=== PATIENT | female | born 1935 | race Caucasian/White ===

== ENCOUNTER 2017-10-17 22:11 | Inpatient (IN) ==
[2017-10-17] MEDS ORDERED: HYDROmorphone 2 MG/1 ML VIAL IV STA (22:38)
[2017-10-17] MEDS ORDERED: ONDANSETRON 4 MG/2 ML VIAL IV STA (22:38)
[2017-10-17] MEDS ORDERED: HYDROmorphone 2 MG/1 ML VIAL ONE (22:50)
[2017-10-17] MEDS ORDERED: ONDANSETRON 4 MG/2 ML VIAL ONE (22:50)
[2017-10-17 23:24] LABS: Basophils % 0.3 % (0.0-0.8); Eosinophils # 0.2 10*3/uL (0.0-0.87); Eosinophils % 3.7 % (0.00-10.9); Hematocrit 32.6 VOL% (35.7-47.0); Hemoglobin 11.1 GM/DL (12.0-16.0); Immature Granulocytes % 0.3 %; Immature Granulocytes Absolute 0.02 #; Lymphocytes # 0.9 10*3/uL (1.4-4.0); Mean Corpuscular Hemoglobin 31 PG (27-34); Mean Corpuscular Volume 89.8 FL (87-102); Mean Platelet Volume 9.2 FL (9.6-12.0); Monocytes # 0.5 10*3/uL (0.11-0.8); Monocytes % 9.2 % (1.7-12.7); Neutrophils % 70.5 % (38.7-73.9); Platelet Count 190 T/CUMM (130-400); Red Blood Count 3.63 MC/CUMM (3.8-5.5); Red Cell Distribution Width 17.4 % (9.3-17.3); White Blood Count 5.7 T/CUMM (4-12)
[2017-10-17 23:44] LABS: Albumin 3.8 G/DL (3.4-5.0); Bilirubin,Total 0.9 MG/DL (0.2-1.0); Calcium 9.1 MG/DL (8.5-10.1); Osmolality,Calculated 276.8 MOS/KG (273-304); Potassium 3.6 MMOL/L (3.5-5.1)
[2017-10-18 00:08] LABS: INR 1.1; PT Patient Result 11.8 SECS
[2017-10-18 01:01] LABS: Apearance,Urine CLEAR (Clear); Bilirubin,Urine Negative (Negative); Blood, Urine Negative (Negative); Glucose,Urine (UA) Negative (Negative); Ketones,Urine Negative (Negative); Nitrite,Urine Negative (Negative); Protein,Urine Negative; RBC,Urine 1 /HPF (0-4); Squamous Epithelial Cell,Urine Occasional /HPF (0-10); Urine Color Yellow (Yellow); Urine Specific Gravity 1.038 (1.001-1.035); Urine Urobilinogen < 2.0 EU/DL (0.2-1.0); WBC,Urine <1 /HPF (0-6)
[2017-10-18 05:18] LABS: Basophils % 0.2 % (0.0-0.8); Eosinophils # 0.2 10*3/uL (0.0-0.87); Eosinophils % 2.9 % (0.00-10.9); Hemoglobin 9.8 GM/DL (12.0-16.0); Immature Granulocytes % 0.3 %; Immature Granulocytes Absolute 0.02 #; Lymphocytes # 0.7 10*3/uL (1.4-4.0); Lymphocytes % 11.1 % (21.3-54.2); Mean Corpuscular HGB Conc 32.7 GM/DL (32-36); Mean Corpuscular Hemoglobin 30 PG (27-34); Mean Corpuscular Volume 92.3 FL (87-102); Mean Platelet Volume 9.4 FL (9.6-12.0); Monocytes # 0.5 10*3/uL (0.11-0.8); Monocytes % 8.6 % (1.7-12.7); Neutrophils # 4.6 10*3/uL (1.4-7.4); Neutrophils % 76.9 % (38.7-73.9); Platelet Count 195 T/CUMM (130-400); Red Blood Count 3.25 MC/CUMM (3.8-5.5); Red Cell Distribution Width 17.6 % (9.3-17.3); White Blood Count 5.9 T/CUMM (4-12)
[2017-10-18] MEDS: SODIUM CHLORIDE 0.9% 1,000 ML IV SCH ×4 (05:40→23:59)
[2017-10-18 06:01] LABS: Osmolality,Calculated 275.8 MOS/KG (273-304); Potassium 3.6 MMOL/L (3.5-5.1)
[2017-10-18] MEDS: PANTOPRAZOLE 40 MG VIAL IV SCH (08:52)
[2017-10-18] MEDS: HYDROmorphone 2 MG/1 ML VIAL IV PRN ×2 (14:33→20:32)
[2017-10-18] MEDS: ONDANSETRON 4 MG/2 ML VIAL IV PRN (20:32)
[2017-10-18] MEDS: POTASSIUM CHLORIDE 10 MEQ TABLET PO SCH (22:13)
[2017-10-19] MEDS: ALBUTEROL/IPRATROPIUM 3 ML NEB RESP TX SCH ×4 (00:52→21:35)
[2017-10-19 05:50] LABS: Basophils % 0.2 % (0.0-0.8); Eosinophils # 0.3 10*3/uL (0.0-0.87); Eosinophils % 5.6 % (0.00-10.9); Hemoglobin 10.7 GM/DL (12.0-16.0); Immature Granulocytes % 0.4 %; Immature Granulocytes Absolute 0.02 #; Lymphocytes # 1.1 10*3/uL (1.4-4.0); Lymphocytes % 20.1 % (21.3-54.2); Mean Corpuscular HGB Conc 31.5 GM/DL (32-36); Mean Corpuscular Hemoglobin 30 PG (27-34); Mean Corpuscular Volume 95.5 FL (87-102); Mean Platelet Volume 9.5 FL (9.6-12.0); Monocytes # 0.6 10*3/uL (0.11-0.8); Monocytes % 10.4 % (1.7-12.7); Neutrophils # 3.6 10*3/uL (1.4-7.4); Neutrophils % 63.3 % (38.7-73.9); Platelet Count 192 T/CUMM (130-400); Red Blood Count 3.56 MC/CUMM (3.8-5.5); White Blood Count 5.7 T/CUMM (4-12)
[2017-10-19] MEDS: LEVOTHYROXINE 100 MCG TABLET PO SCH (06:18)
[2017-10-19 06:26] LABS: Calcium 8.3 MG/DL (8.5-10.1); Magnesium 2.3 MG/DL (1.8-2.4); Potassium 3.5 MMOL/L (3.5-5.1)
[2017-10-19] MEDS: SODIUM CHLORIDE 0.9% 1,000 ML IV SCH ×3 (09:38→20:26)
[2017-10-19] MEDS: ONDANSETRON 4 MG/2 ML VIAL IV PRN (11:41)
[2017-10-19] MEDS: FUROSEMIDE 40 MG/4 ML VIAL IV SCH (11:47)
[2017-10-19] MEDS: ESCITALOPRAM 10 MG TABLET PO SCH (11:50)
[2017-10-19] MEDS: LEVOFLOXACIN INJ 500 MG in PREMIX 1 EACH IV SCH (12:00)
[2017-10-19] MEDS: FUROSEMIDE 80 MG TABLET PO SCH (17:17)
[2017-10-19] MEDS: ASPIRIN EC 81 MG TABLET PO SCH (20:24)
[2017-10-19] MEDS: OMEGA 3 ACID ETHYL ESTERS 1 GM CAPSULE PO SCH (20:24)
[2017-10-19] MEDS: POTASSIUM CHLORIDE 10 MEQ TABLET PO SCH (20:24)
[2017-10-19] MEDS: ATORVASTATIN 40 MG TABLET PO SCH (20:24)
[2017-10-19] MEDS: PANTOPRAZOLE 40 MG TABLET PO SCH (20:25)
[2017-10-19] MEDS: FERROUS SULFATE 325 MG TABLET PO SCH (20:25)
[2017-10-19] MEDS: PANTOPRAZOLE 40 MG VIAL IV SCH (21:52)
[2017-10-20] MEDS: ALBUTEROL/IPRATROPIUM 3 ML NEB RESP TX SCH ×4 (01:22→20:18)
[2017-10-20] MEDS: SODIUM CHLORIDE 0.9% 1,000 ML IV SCH ×3 (03:29→20:46)
[2017-10-20] MEDS: LEVOTHYROXINE 100 MCG TABLET PO SCH (06:30)
[2017-10-20] MEDS: FUROSEMIDE 40 MG/4 ML VIAL IV SCH (08:29)
[2017-10-20] MEDS: CYANOCOBALAMIN 500 MCG TABLET PO SCH (08:57)
[2017-10-20] MEDS: ESCITALOPRAM 10 MG TABLET PO SCH (08:57)
[2017-10-20] MEDS: FERROUS SULFATE 325 MG TABLET PO SCH ×2 (08:57→20:50)
[2017-10-20] MEDS: LOSARTAN 25 MG TABLET PO SCH (08:57)
[2017-10-20] MEDS: ESTRADIOL 1 MG TABLET PO SCH (08:57)
[2017-10-20] MEDS: OMEGA 3 ACID ETHYL ESTERS 1 GM CAPSULE PO SCH ×2 (08:57→20:49)
[2017-10-20] MEDS: PANTOPRAZOLE 40 MG TABLET PO SCH ×2 (08:57→20:50)
[2017-10-20] MEDS: FUROSEMIDE 80 MG TABLET PO SCH ×2 (08:58→16:19)
[2017-10-20] MEDS: LEVOFLOXACIN INJ 500 MG in PREMIX 1 EACH IV SCH (09:00)
[2017-10-20] MEDS: POTASSIUM CHLORIDE 10 MEQ TABLET PO SCH (20:49)
[2017-10-20] MEDS: ATORVASTATIN 40 MG TABLET PO SCH (20:50)
[2017-10-20] MEDS: ASPIRIN EC 81 MG TABLET PO SCH (20:50)
[2017-10-21] MEDS: ALBUTEROL/IPRATROPIUM 3 ML NEB RESP TX SCH ×3 (00:56→11:00)
[2017-10-21] MEDS: SODIUM CHLORIDE 0.9% 1,000 ML IV SCH ×2 (03:22→10:52)
[2017-10-21] MEDS: LEVOTHYROXINE 100 MCG TABLET PO SCH (06:17)
[2017-10-21] MEDS: ESTRADIOL 1 MG TABLET PO SCH (08:26)
[2017-10-21] MEDS: FERROUS SULFATE 325 MG TABLET PO SCH (08:26)
[2017-10-21] MEDS: FUROSEMIDE 80 MG TABLET PO SCH (08:26)
[2017-10-21] MEDS: LOSARTAN 25 MG TABLET PO SCH (08:26)
[2017-10-21] MEDS: CYANOCOBALAMIN 500 MCG TABLET PO SCH (08:27)
[2017-10-21] MEDS: OMEGA 3 ACID ETHYL ESTERS 1 GM CAPSULE PO SCH (08:27)
[2017-10-21] MEDS: ESCITALOPRAM 10 MG TABLET PO SCH (08:27)
[2017-10-21] MEDS: PANTOPRAZOLE 40 MG TABLET PO SCH (08:27)
[2017-10-21] MEDS: FUROSEMIDE 40 MG/4 ML VIAL IV SCH (08:27)
[2017-10-21] MEDS: LEVOFLOXACIN INJ 500 MG in PREMIX 1 EACH IV SCH ×2 (08:27→09:32)
[2017-10-21 10:56] VITALS: BP 119/59
== END 2017-10-21 15:42 | disposition home or self-care (01) | DRG 390 ==
LOC: N.ED 22:11 → N.EDINP 10-18 01:11 → N.3E 10-18 02:03
PROVIDERS: ADMIT Internal Medicine; ATTEND Internal Medicine

== ENCOUNTER 2018-02-21 15:52 | Inpatient (IN) ==
[2018-02-21] MEDS ORDERED: NITROGLYCERIN 2% OINT 1 INCH/GM PACK TOP STA (16:31)
[2018-02-21] MEDS ORDERED: FUROSEMIDE 100 MG/10 ML VIAL IV STA (16:31)
[2018-02-21 16:37] LABS: Basophils % 0.3 % (0.0-0.8); Eosinophils # 0.2 10*3/uL (0.0-0.87); Eosinophils % 2.7 % (0.00-10.9); Hematocrit 30.1 VOL% (35.7-47.0); Hemoglobin 9.4 GM/DL (12.0-16.0); Immature Granulocytes % 0.5 %; Immature Granulocytes Absolute 0.03 #; Lymphocytes # 1.1 10*3/uL (1.4-4.0); Lymphocytes % 18.6 % (21.3-54.2); Mean Corpuscular HGB Conc 31.2 GM/DL (32-36); Mean Corpuscular Hemoglobin 28 PG (27-34); Mean Corpuscular Volume 88.8 FL (87-102); Mean Platelet Volume 9.6 FL (9.6-12.0); Monocytes # 0.6 10*3/uL (0.11-0.8); Monocytes % 9.6 % (1.7-12.7); Neutrophils # 4.1 10*3/uL (1.4-7.4); Neutrophils % 68.3 % (38.7-73.9); Platelet Count 272 T/CUMM (130-400); Red Blood Count 3.39 MC/CUMM (3.8-5.5); Red Cell Distribution Width 17.2 % (9.3-17.3)
[2018-02-21] MEDS ORDERED: NITROGLYCERIN 2% OINT 1 INCH/GM PACK TOP ONE (16:40)
[2018-02-21] MEDS ORDERED: FUROSEMIDE 100 MG/10 ML VIAL ONE (16:40)
[2018-02-21 16:45] LABS: INR 1.4
[2018-02-21 17:09] LABS: Albumin 3.2 G/DL (3.4-5.0); Bilirubin,Total 0.9 MG/DL (0.2-1.0); Calcium 8.4 MG/DL (8.5-10.1); Osmolality,Calculated 274.2 MOS/KG (273-304); Potassium 4.5 MMOL/L (3.5-5.1); Total Protein 7.4 G/DL (6.4-8.3)
[2018-02-21 17:53] LABS: Apearance,Urine CLOUDY (Clear); Bilirubin,Urine Negative (Negative); Blood, Urine Negative (Negative); Glucose,Urine (UA) Negative (Negative); Hyaline Casts,Urine 47 /LPF (0-3); Ketones,Urine Negative (Negative); Mucus,Urine Occasional /LPF (Occasional); Nitrite,Urine Negative (Negative); Protein,Urine 30 MG/DL; RBC,Urine 2 /HPF (0-4); Squamous Epithelial Cell,Urine Occasional /HPF (0-10); Urine Color Amber (Yellow); Urine Specific Gravity 1.014 (1.001-1.035); WBC,Urine 2 /HPF (0-6)
[2018-02-21] MEDS ORDERED: MAGNESIUM SULF RIDER 4 GM in PREMIX 1 EACH IV PRN (18:25)
[2018-02-21] MEDS ORDERED: MAGNESIUM SULF RIDER 2 GM in PREMIX 1 EACH IV PRN (18:25)
[2018-02-21] MEDS ORDERED: DOCUSATE SODIUM 100 MG CAPSULE PO PRN (18:25)
[2018-02-21] MEDS ORDERED: ONDANSETRON 4 MG/2 ML VIAL IV PRN (18:25)
[2018-02-21] MEDS: APIXABAN 5 MG TABLET PO SCH (21:44)
[2018-02-21] MEDS: ZALEPLON 5 MG CAPSULE PO PRN (21:48)
[2018-02-21] MEDS: ATORVASTATIN 40 MG TABLET PO SCH (21:48)
[2018-02-21] MEDS: POTASSIUM CHLORIDE 10 MEQ TABLET PO SCH (21:49)
[2018-02-21] MEDS: PANTOPRAZOLE 40 MG TABLET PO SCH (21:49)
[2018-02-21] MEDS: FUROSEMIDE 80 MG TABLET PO SCH (21:49)
[2018-02-22] MEDS ORDERED: PANTOPRAZOLE 40 MG TABLET PO SCH (09:00)
[2018-02-22] MEDS ORDERED: ALUMINUM/MAGNES/SIMETH MAX STR 30 ML UDCUP PO PRN (10:11)
[2018-02-22] MEDS: APIXABAN 5 MG TABLET PO SCH ×2 (10:26→22:33)
[2018-02-22] MEDS: SIMETHICONE CHEW 80 MG TABLET PO PRN (10:26)
[2018-02-22] MEDS: FUROSEMIDE 80 MG TABLET PO SCH ×2 (10:26→22:33)
[2018-02-22] MEDS: LEVOTHYROXINE 100 MCG TABLET PO SCH (10:26)
[2018-02-22] MEDS: PANTOPRAZOLE 40 MG TABLET PO SCH ×2 (10:27→22:33)
[2018-02-22] MEDS: ESCITALOPRAM 10 MG TABLET PO SCH (10:30)
[2018-02-22] MEDS: metOLazone 2.5 MG TABLET PO SCH (15:58)
[2018-02-22] MEDS: ATORVASTATIN 40 MG TABLET PO SCH (22:33)
[2018-02-22] MEDS: POTASSIUM CHLORIDE 10 MEQ TABLET PO SCH (22:33)
[2018-02-22] MEDS: ZALEPLON 5 MG CAPSULE PO PRN (22:34)
[2018-02-23 05:49] LABS: Calcium 8.5 MG/DL (8.5-10.1); Osmolality,Calculated 274.1 MOS/KG (273-304); Potassium 3.3 MMOL/L (3.5-5.1)
[2018-02-23] MEDS: LEVOTHYROXINE 100 MCG TABLET PO SCH (06:29)
[2018-02-23] MEDS ORDERED: POTASSIUM CHLORIDE 20 MEQ TABLET PO PRN (06:48)
[2018-02-23] MEDS: POTASSIUM CHLORIDE 20 MEQ TABLET PO SCH ×3 (10:22→21:16)
[2018-02-23] MEDS: metOLazone 2.5 MG TABLET PO SCH (10:22)
[2018-02-23] MEDS: FUROSEMIDE 80 MG TABLET PO SCH ×2 (10:23→18:18)
[2018-02-23] MEDS: PANTOPRAZOLE 40 MG TABLET PO SCH ×2 (10:23→21:16)
[2018-02-23] MEDS: APIXABAN 5 MG TABLET PO SCH ×2 (10:23→21:16)
[2018-02-23] MEDS: ESCITALOPRAM 10 MG TABLET PO SCH (10:23)
[2018-02-23] MEDS ORDERED: ACETAMINOPHEN 325 MG TABLET PO PRN (18:09)
[2018-02-23] MEDS: ZALEPLON 5 MG CAPSULE PO PRN (21:16)
[2018-02-23] MEDS: ATORVASTATIN 40 MG TABLET PO SCH (21:16)
[2018-02-24 04:52] LABS: Osmolality,Calculated 278.7 MOS/KG (273-304); Potassium 3.7 MMOL/L (3.5-5.1)
[2018-02-24] MEDS: LEVOTHYROXINE 100 MCG TABLET PO SCH (06:46)
[2018-02-24] MEDS: metOLazone 2.5 MG TABLET PO SCH (08:55)
[2018-02-24] MEDS: APIXABAN 5 MG TABLET PO SCH ×2 (08:55→20:57)
[2018-02-24] MEDS: PANTOPRAZOLE 40 MG TABLET PO SCH ×2 (08:55→20:57)
[2018-02-24] MEDS: ESCITALOPRAM 10 MG TABLET PO SCH (08:55)
[2018-02-24] MEDS: FUROSEMIDE 80 MG TABLET PO SCH ×2 (08:55→16:10)
[2018-02-24] MEDS: POTASSIUM CHLORIDE 20 MEQ TABLET PO SCH ×3 (08:56→20:57)
[2018-02-24] MEDS: ATORVASTATIN 40 MG TABLET PO SCH (20:57)
[2018-02-24] MEDS: SIMETHICONE CHEW 80 MG TABLET PO PRN (20:57)
[2018-02-24] MEDS: ZALEPLON 5 MG CAPSULE PO PRN (21:01)
[2018-02-25 05:22] LABS: Basophils % 0.4 % (0.0-0.8); Eosinophils # 0.2 10*3/uL (0.0-0.87); Eosinophils % 3.7 % (0.00-10.9); Hematocrit 25.6 VOL% (35.7-47.0); Hemoglobin 8.4 GM/DL (12.0-16.0); Immature Granulocytes % 0.4 %; Immature Granulocytes Absolute 0.02 #; Lymphocytes # 1.3 10*3/uL (1.4-4.0); Lymphocytes % 26.7 % (21.3-54.2); Mean Corpuscular HGB Conc 32.8 GM/DL (32-36); Mean Corpuscular Hemoglobin 28 PG (27-34); Mean Corpuscular Volume 84.5 FL (87-102); Mean Platelet Volume 9.4 FL (9.6-12.0); Monocytes # 0.8 10*3/uL (0.11-0.8); Monocytes % 15.8 % (1.7-12.7); Neutrophils # 2.6 10*3/uL (1.4-7.4); Platelet Count 251 T/CUMM (130-400); Red Blood Count 3.03 MC/CUMM (3.8-5.5); Red Cell Distribution Width 17.2 % (9.3-17.3); White Blood Count 4.9 T/CUMM (4-12)
[2018-02-25 05:50] LABS: Band Neutrophils 1 % (0-10); Eosinophils 2 % (0-10); Hypochromasia 1+; Lymphocytes 23 % (20-55); Segmented Neutrophils 65 % (50-85); Total Cells Counted 100
[2018-02-25 05:51] LABS: Microcytosis 1+; Ovalocytes Slight; Polychromasia Slight
[2018-02-25 05:52] LABS: Platelet Estimate Normal
[2018-02-25 05:56] LABS: Calcium 8.5 MG/DL (8.5-10.1); Osmolality,Calculated 273.1 MOS/KG (273-304); Potassium 3.8 MMOL/L (3.5-5.1)
[2018-02-25] MEDS: LEVOTHYROXINE 100 MCG TABLET PO SCH (06:39)
[2018-02-25 07:44] VITALS: BP 101/61
[2018-02-25] MEDS: PANTOPRAZOLE 40 MG TABLET PO SCH (08:44)
[2018-02-25] MEDS: metOLazone 2.5 MG TABLET PO SCH (08:47)
[2018-02-25] MEDS: ESCITALOPRAM 10 MG TABLET PO SCH (08:47)
[2018-02-25] MEDS: FUROSEMIDE 80 MG TABLET PO SCH (08:47)
[2018-02-25] MEDS: APIXABAN 5 MG TABLET PO SCH (08:47)
[2018-02-25] MEDS: POTASSIUM CHLORIDE 20 MEQ TABLET PO SCH (08:47)
== END 2018-02-25 11:20 | disposition home or self-care (01) | DRG 291 ==
LOC: N.ED 15:52 → N.EDINP 18:25 → N.TELES 19:47
PROVIDERS: ADMIT Internal Medicine Cardiovascular Disease; ATTEND Internal Medicine Cardiovascular Disease

== ENCOUNTER 2019-08-31 09:48 | Inpatient (IN) ==
[2019-08-31] MEDS ORDERED: FUROSEMIDE 40 MG/4 ML VIAL IV STA (10:39)
[2019-08-31] MEDS ORDERED: ONDANSETRON 4 MG/2 ML VIAL IV STA (10:39)
[2019-08-31 11:48] LABS: Basophils % 0.4 % (0.0-0.8); Eosinophils # 0.1 10*3/uL (0.0-0.87); Eosinophils % 2.1 % (0.00-10.9); Hematocrit 32.1 VOL% (35.7-47.0); Hemoglobin 10.5 GM/DL (12.0-16.0); Immature Granulocytes % 0.4 %; Immature Granulocytes Absolute 0.02 #; Lymphocytes # 0.7 10*3/uL (1.4-4.0); Lymphocytes % 14.4 % (21.3-54.2); Mean Corpuscular HGB Conc 32.7 GM/DL (32-36); Mean Corpuscular Volume 96.1 FL (87-102); Mean Platelet Volume 8.3 FL (9.6-12.0); Monocytes % 12.7 % (1.7-12.7); Platelet Count 243 T/CUMM (130-400); Red Blood Count 3.34 MC/CUMM (3.8-5.5); Red Cell Distribution Width 16.6 % (9.3-17.3); White Blood Count 4.8 T/CUMM (4-12)
[2019-08-31 11:59] LABS: Apearance,Urine Slightly Hazy (Clear); Bacteria,Urine Occasional /HPF (Few); Bilirubin,Urine Negative (Negative); Blood, Urine Negative (Negative); Glucose,Urine (UA) Negative (Negative); Hyaline Casts,Urine 21 /LPF (0-3); Ketones,Urine Negative (Negative); Mucus,Urine Occasional /LPF (Occasional); Nitrite,Urine Negative (Negative); Protein,Urine Negative; RBC,Urine 1 /HPF (0-4); Urine Color Yellow (Yellow); Urine Urobilinogen < 2.0 EU/DL (0.2-1.0); WBC,Urine 45 /HPF (0-6)
[2019-08-31 12:06] LABS: Alanine Aminotransferase 9 U/L (13-56); Alkaline Phosphatase 83 U/L (45-117); Amylase 63 U/L (25-115); Aspartate Amino Transferase 30 U/L (0-37); Blood Urea Nitrogen 47 MG/DL (7-18); Calcium 9.4 MG/DL (8.5-10.1); Glucose 101 MG/DL (74-106); Osmolality,Calculated 268.1 MOS/KG (273-304); Total Protein 7.4 G/DL (6.4-8.3)
[2019-08-31 12:07] LABS: Estimated Glom Filtration Rate 0 ML/MIN
[2019-08-31] MEDS ORDERED: cefTRIAXone 1,000 MG in SODIUM CHLORIDE 0.9% 100 ML IV STA (12:17)
[2019-08-31] MEDS ORDERED: SODIUM CHLORIDE 0.9% 1,000 ML IV STA (12:17)
[2019-08-31] MEDS ORDERED: MORPHINE 4 MG/1 ML VIAL IV PRN (15:09)
[2019-08-31] MEDS ORDERED: ACETAMINOPHEN 325 MG TABLET PO PRN (15:09)
[2019-08-31] MEDS ORDERED: SPIRONOLACTONE 25 MG TABLET PO PRN (15:09)
[2019-08-31] MEDS ORDERED: ONDANSETRON 4 MG/2 ML VIAL IV PRN (15:09)
[2019-08-31] MEDS ORDERED: SODIUM CHLORIDE 0.9% 1,000 ML IV SCH (15:09)
[2019-08-31] MEDS ORDERED: ACETAMINOPHEN 500 MG TABLET PO ONE (16:00)
[2019-08-31] MEDS: ALBUTEROL/IPRATROPIUM 3 ML NEB RESP TX SCH ×3 (16:45→22:56)
[2019-08-31] MEDS: MIDODRINE 5 MG TABLET PO SCH ×2 (17:20→20:44)
[2019-08-31] MEDS: FUROSEMIDE 40 MG/4 ML VIAL IV SCH (17:23)
[2019-08-31] MEDS ORDERED: diphenhydrAMINE CAP 25 MG CAPSULE PO PRN (17:41)
[2019-08-31] MEDS ORDERED: NITROGLYCERIN SL 0.4 MG TABLET SL PRN (17:41)
[2019-08-31] MEDS: SOTALOL 80 MG TABLET PO SCH (20:43)
[2019-08-31] MEDS: ATORVASTATIN 40 MG TABLET PO SCH (20:44)
[2019-08-31] MEDS: ASPIRIN CHEW 81 MG TABLET PO SCH (20:44)
[2019-08-31] MEDS: TEMAZEPAM 15 MG CAPSULE PO SCH (20:44)
[2019-08-31] MEDS: FERROUS SULFATE 325 MG TABLET PO SCH (20:44)
[2019-08-31] MEDS: PANTOPRAZOLE 40 MG TABLET PO SCH (20:44)
[2019-08-31] MEDS: POTASSIUM CHLORIDE 20 MEQ TABLET PO SCH (20:44)
[2019-08-31] MEDS ORDERED: FUROSEMIDE 80 MG TABLET PO SCH (21:00)
[2019-08-31] MEDS ORDERED: DOCUSATE SODIUM 100 MG CAPSULE PO SCH (21:00)
[2019-09-01] MEDS: ALBUTEROL/IPRATROPIUM 3 ML NEB RESP TX SCH ×6 (03:23→22:31)
[2019-09-01 05:22] LABS: Basophils % 0.4 % (0.0-0.8); Eosinophils # 0.1 10*3/uL (0.0-0.87); Eosinophils % 2.6 % (0.00-10.9); Hematocrit 30.4 VOL% (35.7-47.0); Immature Granulocytes % 0.9 %; Immature Granulocytes Absolute 0.04 #; Lymphocytes # 0.8 10*3/uL (1.4-4.0); Lymphocytes % 17.2 % (21.3-54.2); Mean Corpuscular HGB Conc 32.9 GM/DL (32-36); Mean Corpuscular Volume 95.6 FL (87-102); Mean Platelet Volume 9.1 FL (9.6-12.0); Monocytes % 8.4 % (1.7-12.7); Neutrophils % 70.5 % (38.7-73.9); Platelet Count 228 T/CUMM (130-400); Red Blood Count 3.18 MC/CUMM (3.8-5.5); Red Cell Distribution Width 16.6 % (9.3-17.3); White Blood Count 4.5 T/CUMM (4-12)
[2019-09-01 05:58] LABS: Alanine Aminotransferase < 9 U/L (13-56); Albumin 2.7 G/DL (3.4-5.0); Alkaline Phosphatase 74 U/L (45-117); Aspartate Amino Transferase 26 U/L (0-37); Blood Urea Nitrogen 46 MG/DL (7-18); Calcium 8.9 MG/DL (8.5-10.1); Estimated Glom Filtration Rate 20 ML/MIN; Glucose 120 MG/DL (74-106); Osmolality,Calculated 274.7 MOS/KG (273-304); Total Protein 7.2 G/DL (6.4-8.3)
[2019-09-01] MEDS: LEVOTHYROXINE 112 MCG TABLET PO SCH (06:11)
[2019-09-01] MEDS ORDERED: PANTOPRAZOLE 40 MG VIAL IV SCH (09:00)
[2019-09-01] MEDS ORDERED: ENOXAPARIN 60 MG/0.6 ML SYRINGE SUBCUT SCH (09:00)
[2019-09-01] MEDS: FUROSEMIDE 40 MG/4 ML VIAL IV SCH ×2 (09:25→15:31)
[2019-09-01] MEDS: cefTRIAXone 1,000 MG in SYRINGE 1 EACH IV SCH (09:25)
[2019-09-01] MEDS: FERROUS SULFATE 325 MG TABLET PO SCH ×2 (10:13→21:08)
[2019-09-01] MEDS: ESCITALOPRAM 10 MG TABLET PO SCH (10:13)
[2019-09-01] MEDS: CYANOCOBALAMIN 500 MCG TABLET PO SCH (10:13)
[2019-09-01] MEDS: PANTOPRAZOLE 40 MG TABLET PO SCH ×2 (10:14→21:09)
[2019-09-01] MEDS: MIDODRINE 5 MG TABLET PO SCH ×3 (10:14→21:08)
[2019-09-01] MEDS: SOTALOL 80 MG TABLET PO SCH (10:14)
[2019-09-01] MEDS: POTASSIUM CHLORIDE 20 MEQ TABLET PO SCH ×3 (10:35→21:08)
[2019-09-01] MEDS: TEMAZEPAM 15 MG CAPSULE PO SCH (21:08)
[2019-09-01] MEDS: ASPIRIN CHEW 81 MG TABLET PO SCH (21:09)
[2019-09-01] MEDS: ATORVASTATIN 40 MG TABLET PO SCH (21:09)
[2019-09-02] MEDS: ALBUTEROL/IPRATROPIUM 3 ML NEB RESP TX SCH ×5 (02:41→19:48)
[2019-09-02 04:45] LABS: Calcium 8.6 MG/DL (8.5-10.1); Osmolality,Calculated 272.7 MOS/KG (273-304)
[2019-09-02] MEDS: LEVOTHYROXINE 112 MCG TABLET PO SCH (06:34)
[2019-09-02] MEDS: cefTRIAXone 1,000 MG in SYRINGE 1 EACH IV SCH (09:44)
[2019-09-02] MEDS: CYANOCOBALAMIN 500 MCG TABLET PO SCH (09:45)
[2019-09-02] MEDS: FUROSEMIDE 40 MG/4 ML VIAL IV SCH ×2 (09:45→15:47)
[2019-09-02] MEDS: MIDODRINE 5 MG TABLET PO SCH ×3 (09:46→20:20)
[2019-09-02] MEDS: ESCITALOPRAM 10 MG TABLET PO SCH (09:46)
[2019-09-02] MEDS: DOCUSATE SODIUM 100 MG CAPSULE PO SCH (09:46)
[2019-09-02] MEDS: FERROUS SULFATE 325 MG TABLET PO SCH ×2 (09:46→20:21)
[2019-09-02] MEDS: PANTOPRAZOLE 40 MG TABLET PO SCH ×2 (09:47→20:20)
[2019-09-02] MEDS: POTASSIUM CHLORIDE 20 MEQ TABLET PO SCH ×3 (09:56→20:19)
[2019-09-02 14:56] LABS: Total Protein,Peritoneal Fluid 5.1 G/DL
[2019-09-02 16:22] LABS: Neutrophils,Peritoneal Fluid 33 %
[2019-09-02 16:25] LABS: RBC,Peritoneal Fluid 1146 T/CUMM
[2019-09-02] MEDS: TEMAZEPAM 15 MG CAPSULE PO SCH (20:19)
[2019-09-02] MEDS: ATORVASTATIN 40 MG TABLET PO SCH (20:20)
[2019-09-02] MEDS: ASPIRIN CHEW 81 MG TABLET PO SCH (20:21)
[2019-09-02] MEDS: SENNA 8.6 MG TABLET PO SCH (20:23)
[2019-09-03] MEDS: ALBUTEROL/IPRATROPIUM 3 ML NEB RESP TX SCH ×7 (00:04→23:54)
[2019-09-03 05:17] LABS: Basophils % 0.8 % (0.0-0.8); Eosinophils # 0.2 10*3/uL (0.0-0.87); Eosinophils % 2.9 % (0.00-10.9); Hematocrit 31.5 VOL% (35.7-47.0); Hemoglobin 10.2 GM/DL (12.0-16.0); Immature Granulocytes % 0.4 %; Immature Granulocytes Absolute 0.02 #; Lymphocytes % 18.6 % (21.3-54.2); Mean Corpuscular HGB Conc 32.4 GM/DL (32-36); Mean Corpuscular Volume 96.3 FL (87-102); Mean Platelet Volume 9.5 FL (9.6-12.0); Monocytes % 12.9 % (1.7-12.7); Neutrophils % 64.4 % (38.7-73.9); Platelet Count 201 T/CUMM (130-400); Red Blood Count 3.27 MC/CUMM (3.8-5.5); White Blood Count 5.2 T/CUMM (4-12)
[2019-09-03 05:38] LABS: Albumin 2.8 G/DL (3.4-5.0); Bilirubin,Total 1.1 MG/DL (0.2-1.0); Calcium 8.6 MG/DL (8.5-10.1); Osmolality,Calculated 271.8 MOS/KG (273-304); Total Protein 7.1 G/DL (6.4-8.3)
[2019-09-03] MEDS: LEVOTHYROXINE 112 MCG TABLET PO SCH (06:04)
[2019-09-03] MEDS: FUROSEMIDE 40 MG/4 ML VIAL IV SCH ×2 (08:39→15:00)
[2019-09-03] MEDS: FERROUS SULFATE 325 MG TABLET PO SCH ×2 (08:39→20:06)
[2019-09-03] MEDS: MIDODRINE 5 MG TABLET PO SCH ×3 (08:39→20:05)
[2019-09-03] MEDS: ESCITALOPRAM 10 MG TABLET PO SCH (08:39)
[2019-09-03] MEDS: cefTRIAXone 1,000 MG in SYRINGE 1 EACH IV SCH (08:39)
[2019-09-03] MEDS: CYANOCOBALAMIN 500 MCG TABLET PO SCH (08:39)
[2019-09-03] MEDS: SENNA 8.6 MG TABLET PO SCH (08:40)
[2019-09-03] MEDS: PANTOPRAZOLE 40 MG TABLET PO SCH ×2 (08:40→20:06)
[2019-09-03] MEDS: POTASSIUM CHLORIDE 20 MEQ TABLET PO SCH ×2 (08:40→20:05)
[2019-09-03] MEDS ORDERED: LACTULOSE 20 GM/30 ML UDCUP PO ONE (11:00)
[2019-09-03] MEDS: POTASSIUM CHLORIDE 20 MEQ TABLET PO PRN ×3 (11:30→17:52)
[2019-09-03] MEDS: ATORVASTATIN 40 MG TABLET PO SCH (20:05)
[2019-09-03] MEDS: TEMAZEPAM 15 MG CAPSULE PO SCH (20:05)
[2019-09-03] MEDS: ASPIRIN CHEW 81 MG TABLET PO SCH (20:06)
[2019-09-04] MEDS: ALBUTEROL/IPRATROPIUM 3 ML NEB RESP TX SCH ×4 (03:54→14:41)
[2019-09-04] MEDS: LEVOTHYROXINE 112 MCG TABLET PO SCH (05:49)
[2019-09-04 08:18] LABS: Basophils % 0.8 % (0.0-0.8); Eosinophils # 0.2 10*3/uL (0.0-0.87); Eosinophils % 3.7 % (0.00-10.9); Hematocrit 31.8 VOL% (35.7-47.0); Hemoglobin 10.1 GM/DL (12.0-16.0); Immature Granulocytes % 0.6 %; Immature Granulocytes Absolute 0.03 #; Lymphocytes # 0.8 10*3/uL (1.4-4.0); Lymphocytes % 15.1 % (21.3-54.2); Mean Corpuscular HGB Conc 31.8 GM/DL (32-36); Mean Corpuscular Volume 98.5 FL (87-102); Mean Platelet Volume 9.2 FL (9.6-12.0); Monocytes % 14.2 % (1.7-12.7); Neutrophils % 65.6 % (38.7-73.9); Platelet Count 171 T/CUMM (130-400); Red Blood Count 3.23 MC/CUMM (3.8-5.5); Red Cell Distribution Width 16.9 % (9.3-17.3); White Blood Count 5.2 T/CUMM (4-12)
[2019-09-04 08:57] LABS: Albumin 2.6 G/DL (3.4-5.0); Bilirubin,Total 0.9 MG/DL (0.2-1.0); Calcium 8.4 MG/DL (8.5-10.1); Osmolality,Calculated 272.7 MOS/KG (273-304); Total Protein 7.1 G/DL (6.4-8.3)
[2019-09-04] MEDS ORDERED: SOTALOL 80 MG TABLET PO SCH (09:00)
[2019-09-04] MEDS: FUROSEMIDE 40 MG/4 ML VIAL IV SCH (09:49)
[2019-09-04] MEDS: cefTRIAXone 1,000 MG in SYRINGE 1 EACH IV SCH (09:49)
[2019-09-04] MEDS: FERROUS SULFATE 325 MG TABLET PO SCH (09:50)
[2019-09-04] MEDS: SENNA 8.6 MG TABLET PO SCH (09:50)
[2019-09-04] MEDS: PANTOPRAZOLE 40 MG TABLET PO SCH (09:51)
[2019-09-04] MEDS: POTASSIUM CHLORIDE 20 MEQ TABLET PO SCH (09:51)
[2019-09-04] MEDS: MIDODRINE 5 MG TABLET PO SCH (09:51)
[2019-09-04] MEDS: ESCITALOPRAM 10 MG TABLET PO SCH (09:51)
[2019-09-04] MEDS: CYANOCOBALAMIN 500 MCG TABLET PO SCH (09:51)
[2019-09-04] MEDS: DOCUSATE SODIUM 100 MG CAPSULE PO SCH (09:55)
[2019-09-04] MEDS: LACTULOSE 20 GM/30 ML UDCUP PO SCH ×2 (09:56→12:47)
[2019-09-04] MEDS ORDERED: BISACODYL 10 MG SUPP RECTAL ONE (10:00)
[2019-09-04 11:15] LABS: INR 1.1; PT Patient Result 12.4 SECS (9.6-12.2)
[2019-09-04 11:33] VITALS: BP 124/56
== END 2019-09-04 18:15 | disposition hospice, home (50) | DRG 291 ==
LOC: N.ED 09:48 → N.EDINP 13:59 → N.2E 14:49
PROVIDERS: ADMIT Internal Medicine; ATTEND Internal Medicine